=== PATIENT | female | born 1955 | race Caucasian/White ===

== ENCOUNTER → 2019-01-10 10:51 | Outpatient (CLI) | payer OTHER, SELFPAY ==
--- NOTE | 2019-01-10 | DI.MG.S_ITS ---
BILATERAL DIGITAL SCREENING MAMMOGRAM 3D/2D WITH CAD: 01/10/2019 CLINICAL: Routine screening. Family history of breast cancer. Comparison is made to exams dated: 12/13/2017 mammogram, 01/14/2015 mammogram, and 07/22/2013 mammogram - [facility]. The tissue of both breasts is extremely dense, which lowers the sensitivity of mammography. Current study was also evaluated with a Computer Aided Detection (CAD) system. There are benign diffuse calcifications in both breasts. No significant masses, calcifications, or other findings are seen in either breast. There has been no significant interval change. IMPRESSION: There is no mammographic evidence of malignancy. A 1 year screening mammogram is recommended. This exam was interpreted at Station ID: [id number]. NOTE: For mammograms, a report in lay terms will be sent to the patient. Approximately 15% of breast malignancies will not be visualized mammographically. In the management of a palpable breast mass, a negative mammogram must not discourage biopsy of a clinically suspicious lesion. Electronically Signed By: Ti hallman/basia:01/10/2019 11:55:44 letter sent: Normal Exam ACR BI-RADS Category 2: Benign Finding(s) 3342F
== END ==
PROVIDERS: Family Provider Physician Assistant; PCP Physician Assistant; Visit Provider Physician Assistant
DX: Z12.31 Encounter for screening mammogram for malignant neoplasm of breast (principal); Z80.3 Family history of malignant neoplasm of breast
CPT/HCPCS: 77063; 77067

== ENCOUNTER → 2019-07-09 13:03 | Outpatient (CLI) | payer OTHER, SELFPAY | PROVIDERS: Family Provider Physician Assistant; PCP Physician Assistant; Visit Provider Physician Assistant | DX: M85.88 Other specified disorders of bone density and structure, other site (principal); Z78.0 Asymptomatic menopausal state; Z82.62 Family history of osteoporosis; Z87.891 Personal history of nicotine dependence | CPT/HCPCS: 77080 ==

== ENCOUNTER → 2020-08-18 15:20 | Outpatient (ROUT) | payer OTHER, SELFPAY | PROVIDERS: Family Provider Physician Assistant; PCP Physician Assistant; Visit Provider Student in an Organized Health Care Education/Training Program | DX: R39.9 Unspecified symptoms and signs involving the genitourinary system (principal) | CPT/HCPCS: 87077; 87086; 87186 ==

== ENCOUNTER → 2021-01-19 17:19 | Outpatient (CLI) | payer OTHER, SELFPAY ==
--- NOTE | 2021-01-19 | DI.MG.S_ITS ---
BILATERAL DIGITAL SCREENING MAMMOGRAM 3D/2D WITH CAD: 01/19/2021 CLINICAL: Routine screening. Family history of breast cancer. Comparison is made to exams dated: 01/10/2019 mammogram, 12/13/2017 mammogram, and 01/14/2015 mammogram - [facility]. The tissue of both breasts is extremely dense, which lowers the sensitivity of mammography. Current study was also evaluated with a Computer Aided Detection (CAD) system. There is a new focal asymmetry in the right breast at 2 o'clock posterior depth. No other significant masses, calcifications, or other findings are seen in either breast. IMPRESSION: INCOMPLETE: NEEDS ADDITIONAL IMAGING EVALUATION The new focal asymmetry in the right breast is indeterminate. Additional views with possible ultrasound are recommended. This exam was interpreted at Station ID: [id number]. NOTE: For mammograms, a report in lay terms will be sent to the patient. Approximately 15% of breast malignancies will not be visualized mammographically. In the management of a palpable breast mass, a negative mammogram must not discourage biopsy of a clinically suspicious lesion. Electronically Signed By: Marlon tai/basia:01/20/2021 14:31:41 letter sent: Additional Imaging Needed ACR BI-RADS Category 0: Incomplete 3340F
== END ==
PROVIDERS: Family Provider Physician Assistant; PCP Physician Assistant; Referring Provider Physician Assistant; Visit Provider Physician Assistant
DX: Z12.31 Encounter for screening mammogram for malignant neoplasm of breast (principal); Z80.3 Family history of malignant neoplasm of breast
CPT/HCPCS: 77063; 77067

== ENCOUNTER → 2021-01-27 08:50 | Outpatient (CLI) | payer OTHER, SELFPAY ==
--- NOTE | 2021-01-27 | DI.US.S_ITS ---
LIMITED ULTRASOUND OF RIGHT BREAST AND AXILLA: 01/27/2021 CLINICAL: Patient returns today to evaluate a focal asymmetry in the right breast. Comparison is made to exams dated: 01/27/2021 mammogram, 01/19/2021 mammogram, 01/10/2019 mammogram, 12/13/2017 mammogram, 01/14/2015 mammogram, and 07/22/2013 mammogram - [facility]. Color flow and real-time ultrasound of the right breast 2-3 o'clock, 11 o'clock, retroareolar, and axilla regions were performed. Aquino scale images of the real-time examination were reviewed. No ultrasound correlate for the focal asymmetry in the right breast 2 o'clock posterior depth. No significant abnormalities were seen sonographically in the right axilla. IMPRESSION: SUSPICIOUS OF MALIGNANCY No ultrasound correlate for the new focal asymmetry in the right breast is identified. A right breast stereotactic biopsy is recommended. Exam findings were discussed with the patient by Dr. Marcos Harmon over the phone. This exam was interpreted at Station ID: [id number]. Electronically Signed By: Marcos Harmon M.D. slc/:01/27/2021 10:44:14 letter sent: Biopsy Required Ultrasound BI-RADS: 4a Low suspicion for malignancy
--- NOTE | 2021-01-27 | DI.MG.S_ITS ---
UNILATERAL RIGHT DIGITAL DIAGNOSTIC MAMMOGRAM 3D/2D WITH ADDITIONAL VIEWS: 01/27/2021 CLINICAL: Additional evaluation requested from prior study. Comparison is made to exams dated: 01/19/2021 mammogram, 01/10/2019 mammogram, and 12/13/2017 mammogram - [facility]. The tissue of right breast is extremely dense, which lowers the sensitivity of mammography. There is a new 0.5 cm irregular equal density focal asymmetry with a spiculated margin in the right breast at 2 o'clock posterior depth. No other significant masses or calcifications are seen in the breast. IMPRESSION: INCOMPLETE: NEEDS ADDITIONAL IMAGING EVALUATION The new 0.5 cm irregular equal density focal asymmetry in the right breast is indeterminate. A targeted ultrasound is recommended and will immediately follow. This exam was interpreted at Station ID: [id number]. NOTE: For mammograms, a report in lay terms will be sent to the patient. Approximately 15% of breast malignancies will not be visualized mammographically. In the management of a palpable breast mass, a negative mammogram must not discourage biopsy of a clinically suspicious lesion. Electronically Signed By: Marcos Harmon M.D. slc/:01/27/2021 10:39:59 ACR BI-RADS Category 0: Incomplete 3340F
== END ==
PROVIDERS: Family Provider Physician Assistant; PCP Physician Assistant; Referring Provider Physician Assistant; Visit Provider Physician Assistant
DX: R92.8 Other abnormal and inconclusive findings on diagnostic imaging of breast (principal); N64.89 Other specified disorders of breast
CPT/HCPCS: 76642; 77065; G0279

== ENCOUNTER → 2021-05-02 10:29 | Outpatient (CLI) | payer OTHER, SELFPAY ==
[2021-05-02 11:29] LABS: Add Manual Diff / Slide Review NO; Basophils Absolute Auto 200 /uL (0-100); Basophils Percent Auto 1.9 % (0-2); Eosinophils Absolute Auto 500 /uL (0-450); Hematocrit 40.3 % (36-46); Hemoglobin 13.7 g/dL (12.0-16.0); Lymphocytes Absolute Auto 2600 /uL (1100-4500); Lymphocytes Percent Auto 31.1 % (25-40); Mean Corpuscular HGB Conc 33.9 % (30-36); Mean Corpuscular Hemoglobin 31.3 PG (26-34); Mean Corpuscular Volume 92.1 fL (80-100); Monocytes Absolute Auto 500 /uL (0-900); Monocytes Percent Auto 5.9 % (3-14); Neutrophils Absolute Auto 4600 /uL (1500-7000); Neutrophils Percent Auto 55.1 % (50-75); Platelet Count 250 X10^3/uL (150-400); Red Blood Cell Count 4.38 X10^6/uL (4.0-5.2); Red Cell Distribution Width 13.2 % (11.6-14.8); White Blood Cell Count 8.3 X10^3/uL (4.5-11.0)
[2021-05-02 11:44] LABS: Alanine Aminotransferase 48 IU/L (<35); Albumin 4.4 g/dL (3.5-5.0); Albumin Globulin Ratio 1.8 (1.0-2.8); Alkaline Phosphatase 63 U/L (38-126); Aspartate Aminotransferase 42 IU/L (14-36); BUN Creatinine Ratio 19.3 (6-22); Bilirubin Total 0.9 mg/dL (0.2-1.3); Blood Urea Nitrogen 11 mg/dL (7-17); Calcium 9.9 mg/dL (8.4-10.2); Carbon Dioxide 30 mmol/L (22-32); Chloride 100 mmol/L (98-107); Cholesterol 242 mg/dL (140-199); Estimated Glomerular Filt Rate > 60.0 mL/min (>60); Globulin 2.4 g/dL (1.7-4.1); Glucose 99 mg/dL (80-110); HDL Cholesterol 97 mg/dL (40-60); HEMOLYSIS < 15 (0-50); LDL Cholesterol Calculated 96 mg/dL (<100); Potassium 4.1 mmol/L (3.4-5.1); Sodium 137 mmol/L (137-145); Total Protein 6.8 g/dL (6.3-8.2); Triglycerides 243 mg/dL (35-150)
== END ==
PROVIDERS: Family Provider Physician Assistant; PCP Physician Assistant; Referring Provider Physician Assistant; Visit Provider Physician Assistant
DX: E78.5 Hyperlipidemia, unspecified (principal)
CPT/HCPCS: 36415; 80053; 80061; 85025

== ENCOUNTER → 2021-05-31 13:29 | Outpatient (CLI) | payer OTHER, SELFPAY ==
--- NOTE | 2021-05-31 | DI.MG.S_ITS ---
UNILATERAL RIGHT DIGITAL DIAGNOSTIC MAMMOGRAM 3D/2D SHORT-TERM FOLLOW-UP: 05/31/2021 CLINICAL: Short term follow up from [facility]. Comparison is made to exams dated: 02/08/2021 stereotactic biopsy - [facility], 01/27/2021 mammogram, 01/19/2021 mammogram, 01/10/2019 mammogram, and 01/27/2021 ultrasound - [facility]. The tissue of right breast is extremely dense, which lowers the sensitivity of mammography. There is an irregular equal density focal asymmetry in the right breast at 1 o'clock posterior depth. This is increased in size. There is a biopsy clip associated with the focal asymmetry. No other significant masses or calcifications are seen in the breast. IMPRESSION: INCOMPLETE: NEEDS ADDITIONAL IMAGING EVALUATION The irregular equal density focal asymmetry in the right breast is indeterminate. An ultrasound is recommended. This exam was interpreted at Station ID: [id number]. NOTE: For mammograms, a report in lay terms will be sent to the patient. Approximately 15% of breast malignancies will not be visualized mammographically. In the management of a palpable breast mass, a negative mammogram must not discourage biopsy of a clinically suspicious lesion. Electronically Signed By: Marlon tai/basia:05/31/2021 15:57:36 ACR BI-RADS Category 0: Incomplete 3340F
--- NOTE | 2021-05-31 | DI.US.S_ITS ---
LIMITED ULTRASOUND OF RIGHT BREAST AND AXILLA: 05/31/2021 CLINICAL: Patient returns today to evaluate a focal asymmetry in the right breast. Comparison is made to exams dated: 02/08/2021 stereotactic biopsy - [facility], 01/27/2021 ultrasound, 01/27/2021 mammogram, 01/19/2021 mammogram, 05/31/2021 mammogram, and 01/10/2019 mammogram - [facility]. Color flow ultrasound of the right breast axilla was performed. Aquino scale images of the real-time examination were reviewed. There is a 1.5 cm x 0.8 cm x 0.6 cm irregular mass in the right breast at 1 o'clock middle depth 9 cm from the nipple. This irregular mass is hypoechoic with posterior acoustic shadowing. The abnormality extends to the skin surface on cine images. This correlates with mammography findings. There is an associated biopsy clip. No significant abnormalities were seen sonographically in the right axilla. IMPRESSION: PROBABLY BENIGN The 1.5 cm x 0.8 cm x 0.6 cm irregular mass in the right breast is most likely a post-biopsy scar is probably benign. A follow-up right mammogram and an ultrasound in 6 months is recommended to demonstrate stability. This exam was interpreted at Station ID: [id number]. Electronically Signed By: Marlon Benson M.D. ar/:05/31/2021 16:01:51 letter sent: Followup Recommended Ultrasound BI-RADS: 3 Probably benign
== END ==
PROVIDERS: Family Provider Physician Assistant; PCP Physician Assistant; Referring Provider Physician Assistant; Visit Provider Physician Assistant
DX: N63.12 Unspecified lump in the right breast, upper inner quadrant (principal)
CPT/HCPCS: 76642; 77065; G0279

== ENCOUNTER → 2021-12-08 12:52 | Outpatient (CLI) | payer OTHER, SELFPAY ==
--- NOTE | 2021-12-08 | DI.MG.S_ITS ---
BILATERAL DIGITAL DIAGNOSTIC MAMMOGRAM 3D/2D SHORT-TERM FOLLOW-UP: 12/08/2021 CLINICAL: Short term follow up of the right breast, due for bilateral imaging. Comparison is made to exams dated: 05/31/2021 mammogram, 01/27/2021 mammogram, and 01/19/2021 mammogram - [facility]. The tissue of both breasts is extremely dense, which lowers the sensitivity of mammography. There are stable benign diffuse punctate calcifications in both breasts. There is a small asymmetry and architectural distortion in the right breast at 12 o'clock posterior depth. This is less prominent and decreased in size. There is a biopsy clip associated with the architectural distortion. No other significant masses, calcifications, or other findings are seen in either breast. Mammograms are otherwise stable. IMPRESSION: BENIGN The architectural distortion in the right breast has decreased in size, has the appearance of a scar, and there has been no redevelopment of the focal asymmetry initially seen and biopsied. This area is benign. Mammograms are otherwise stable. Return to annual mammogram screening schedule is recommended. Findings and recommendations were conveyed to the patient at time of exam. This exam was interpreted at Station ID: [id number]. NOTE: For mammograms, a report in lay terms will be sent to the patient. Approximately 15% of breast malignancies will not be visualized mammographically. In the management of a palpable breast mass, a negative mammogram must not discourage biopsy of a clinically suspicious lesion. Electronically Signed By: Coby couch/:12/08/2021 13:47:43 letter sent: Normal Exam ACR BI-RADS Category 2: Benign Finding(s) 3342F
== END ==
PROVIDERS: Family Provider Physician Assistant; PCP Physician Assistant; Referring Provider Physician Assistant; Visit Provider Physician Assistant
DX: R92.8 Other abnormal and inconclusive findings on diagnostic imaging of breast (principal)
CPT/HCPCS: 77066; G0279

== ENCOUNTER → 2022-12-11 11:26 | Outpatient (CLI) | payer OTHER, SELFPAY ==
--- NOTE | 2022-12-11 | DI.MG.S_ITS ---
BILATERAL DIGITAL SCREENING MAMMOGRAM 3D/2D WITH CAD: 12/11/2022 Comparison is made to exams dated: 12/08/2021 mammogram, 05/31/2021 mammogram, 01/27/2021 mammogram, 01/19/2021 mammogram, and 01/10/2019 mammogram - [facility]. Both breasts are extremely dense, which lowers the sensitivity of mammography (category d />75% glandular tissue). Current study was also evaluated with a Computer Aided Detection (CAD) system. There are stable benign diffuse calcifications in both breasts. No significant masses, calcifications, or other findings are seen in either breast. There has been no significant interval change. IMPRESSION: BENIGN There is no mammographic evidence of malignancy. A 1 year screening mammogram is recommended. This exam was interpreted at Station ID: [id number]. NOTE: For mammograms, a report in lay terms will be sent to the patient. Approximately 15% of breast malignancies will not be visualized mammographically. In the management of a palpable breast mass, a negative mammogram must not discourage biopsy of a clinically suspicious lesion. Electronically Signed By: iT hallman/basia:12/11/2022 16:10:13 letter sent: Normal Exam ACR BI-RADS Category 2: Benign Finding(s) 3342F
== END ==
PROVIDERS: Family Provider Physician Assistant; PCP Physician Assistant; Referring Provider Physician Assistant; Visit Provider Physician Assistant
DX: Z12.31 Encounter for screening mammogram for malignant neoplasm of breast (principal)
CPT/HCPCS: 77063; 77067

== ENCOUNTER → 2024-08-22 15:45 | Outpatient (CLI) | payer OTHER, SELFPAY ==
--- NOTE | 2024-08-22 15:46 | DI.MG.S_ITS ---
BILATERAL DIGITAL SCREENING MAMMOGRAM 3D/2D WITH CAD: 08/22/2024 CLINICAL: Routine screening. Family history of breast cancer. Comparison is made to exams dated: 12/11/2022 mammogram, 12/08/2021 mammogram, 01/19/2021 mammogram, 05/31/2021 mammogram, 01/27/2021 mammogram, and 01/10/2019 mammogram - [facility]. The breasts are extremely dense, which lowers the sensitivity of mammography (category d />75% glandular tissue). Current study was also evaluated with a Computer Aided Detection (CAD) system. There are benign diffuse calcifications in both breasts. There also is a biopsy clip in the right breast. No significant masses, calcifications, or other findings are seen in either breast. There has been no significant interval change. IMPRESSION: BENIGN There is no mammographic evidence of malignancy. A 1 year screening mammogram is recommended. Based on the Tyrer Cuzick model (a risk assessment model) the patient's lifetime risk is 15.8% and her 10 year risk is 11.1%. According to the ACR, ACS, and NCCN guidelines, an annual breast MRI exam along with mammogram is recommended if the patient's lifetime risk is 20% or greater. This exam was interpreted at Station ID: [id number]. NOTE: For mammograms, a report in lay terms will be sent to the patient. Approximately 15% of breast malignancies will not be visualized mammographically. In the management of a palpable breast mass, a negative mammogram must not discourage biopsy of a clinically suspicious lesion. Electronically Signed By: Arline Choe M.D., Ph.D. gabbi/basia:08/22/2024 23:13:22 letter sent: Normal Exam ACR BI-RADS Category 2: Benign
== END ==
PROVIDERS: Family Provider Physician Assistant; PCP Physician Assistant; Referring Provider Physician Assistant; Visit Provider Physician Assistant
DX: Z12.31 Encounter for screening mammogram for malignant neoplasm of breast (principal); R92.1 Mammographic calcification found on diagnostic imaging of breast; R92.30 Dense breasts, unspecified; Z80.3 Family history of malignant neoplasm of breast
CPT/HCPCS: 77063; 77067

== ENCOUNTER → 2024-11-12 10:44 | Outpatient (CLI) | payer OTHER, SELFPAY ==
--- NOTE | 2024-11-12 10:46 | DI.US.S_ITS ---
PROCEDURE: US SOFT TISSUE HEAD AND NECK INDICATIONS: BILATERAL NECK LUMPS L>R TECHNIQUE: Real-time scanning was performed of the neck region of interest, with image documentation. COMPARISON: None. FINDINGS: At the area of concern, there are several small normal appearing lymph nodes. Largest is in the left submandibular region measuring 9.3 mm. IMPRESSION: Normal soft tissue ultrasound. Palpable abnormality corresponds with normal appearing lymph nodes Approved by: Lorenzo Randle M.D. on 11/12/2024 at 18:02
== END ==
PROVIDERS: Family Provider Physician Assistant; PCP Physician Assistant; Referring Provider Physician Assistant; Visit Provider Physician Assistant
DX: R22.1 Localized swelling, mass and lump, neck (principal); R61 Generalized hyperhidrosis
CPT/HCPCS: 76536

== ENCOUNTER → 2024-12-25 14:54 | Outpatient (CLI) | payer OTHER, SELFPAY ==
--- NOTE | 2024-12-25 14:57 | DI.RAD.S_ITS ---
PROCEDURE: XR CHEST 2V INDICATIONS: NIGHT SWEATS TECHNIQUE: 2 views of the chest were acquired. COMPARISON: None. FINDINGS: Heart, mediastinum and pulmonary vascular: Heart is normal in size and configuration. Mediastinum is unremarkable. Pulmonary vascular is normal. Lungs: Clear Pleural spaces: Normal-no effusions or pneumothorax. Bones and soft tissues: N mild degenerative disc disease seen throughout the thoracic spine. IMPRESSION: No cardiopulmonary disease Dictated by: Neville Nair M.D. on 12/26/2024 at 12:08 Approved by: Neville Nair M.D. on 12/26/2024 at 12:09
== END ==
PROVIDERS: Family Provider Physician Assistant; PCP Physician Assistant; Referring Provider Family Medicine; Visit Provider Family Medicine
DX: M51.34 Other intervertebral disc degeneration, thoracic region (principal); R61 Generalized hyperhidrosis
CPT/HCPCS: 71046

== ENCOUNTER 2025-01-05 08:02 | Day surgery (SDC) | payer OTHER, SELFPAY ==
--- NOTE | 2025-01-05 | PATH_ITS ---
[facility] Accession Number: [id number] No. of containers..03 Tissue . 01 Material submitted: . PART A: gastrointestinal site - GASTRIC BIOPSY PART B: esophagus, E-G Junction - GE JUNCTION NODULE PART C: esophagus - DISTAL ESOPHAGUS . 01 Clinical history: . A: FOR H.PYLORI C: R/O GODOY'S . 01 Diagnosis: Part A: GASTRIC BIOPSY: Gastric mucosa with mild chronic inflammation. No Helicobacter organisms identified. No intestinal metaplasia, dysplasia, or malignancy identified. . Part B: GE JUNCTION NODULE: Squamocolumnar junctional mucosa with mild chronic inflammation and mild reactive foveolar hyperplasia. No goblet cell metaplasia, dysplasia, or malignancy identified. See comment. . Specimen Comments: The presence of mild reactive foveolar changes may correlate with the clinical appearance of a nodule. No other histologic correlate is seen, and clinical correlation is recommended. . Additional step sections were examined. . Part C: DISTAL ESOPHAGUS: Squamous mucosa with mild reactive changes suggestive of reflux. Eosinophils are not increased. [facility] 01/07/2025 1522 Local . 01 Electronically signed: . Kostas Fam MD, Pathologist NPI- [id number] . 01 Gross description: . Part A: GASTRIC BIOPSY: Received in formalin are 2 fragment(s) of newton, soft tissue measuring 0.2 x 0.1 x 0.1 cm to 0.5 x 0.1 x 0.1 cm submitted entirely in 1 cassette(s) . Part B: GE JUNCTION NODULE: Received in formalin are 2 fragment(s) of newton, soft tissue measuring 0.2 x 0.2 x 0.2 cm to 0.3 x 0.3 x 0.2 cm submitted entirely in 1 cassette(s) . Part C: DISTAL ESOPHAGUS: Received in formalin are 2 fragment(s) of newton, soft tissue measuring 0.1 x 0.1 x 0.1 cm to 0.2 x 0.1 x 0.1 cm submitted entirely in 1 cassette(s) /PATEL 01/07/2025 1522 Local . 01 Microscopic: . Part A: GASTRIC BIOPSY: An immunohistochemical stain was performed to evaluate for Helicobacter organisms and is negative. The control stains appropriately. * This test was developed and the performance characteristics were validated by [employer]. It has not been cleared or approved by the Food and Drug Administration. . Part B: GE JUNCTION NODULE: An ABPAS stain was performed to evaluate for goblet cell metaplasia and is negative. The control stains appropriately. . Part C: DISTAL ESOPHAGUS: An ABPAS stain was performed to evaluate for fungal organisms and is negative. The control stains appropriately. . 01 Pathologist provided ICD-10: K20.90, K29.50 . 01 CPT . 908995, 708847, 281811, 520774, [id number], [id number] Specimen Comment: A courtesy copy of this report has been sent to [phone] Performed at: [address] [address], [place], [place] [id number] MD Kostas Fam MD Phone: [phone]
[2025-01-05 08:17] VITALS: BP 118/77; PULSE 96; RESP 16; TEMP 36.4; O2SAT 97
[2025-01-05] MEDS: LACTATED RINGERS 1,000 ML 42 ML IV (08:24)
--- NOTE | 2025-01-05 08:33 | PM.PREOP ---
Pre-operative Note COVID-19 COVID-19 status: Not tested Interval Note History & Physical reviewed/Exam performed by Physician: Yes Changes to H&P: No ASA Class (for procedural sedation): II
--- NOTE | 2025-01-05 08:34 | PM.OP.EGD ---
Operative Date/Time/Diagnoses Date of procedure: 01/05/25 Pre-op diagnosis: See indication and findings Procedure & Clinicians Study performed: EGD Same procedure as scheduled: Yes Indications: GE reflux Surgeon: Song Crump Procedure Notes Procedure in detail: After informed consent was obtained the patient was placed in left lateral decubitus position. The video upper scope was placed into the oropharynx and with the patient's help swallowed into the esophagus. The esophagus stomach and duodenal were carefully examined. On withdrawal, retroflexed view the GE junction was performed. The scope was removed. The patient tolerated procedure well. Blood loss none Complications none Sedation mac Findings 1. Normal proximal esophagus 2. Scattered islands of pink tissue in the last cm before the GE junction. There were no circumferential areas of possible Tyler's. Biopsies were taken to rule out Barretts in the area of 34-35 cm 3. No evidence of peptic change at the GE junction at 35 cm 4. Nodule present at GE junction approximately 1 cm in size appearing benign. Most likely a sentinel nodule 4. Normal stomach biopsies taken in the antrum to rule out Helicobacter 5. Normal duodenal bulb and sweep We will be in touch regarding biopsies and interval of follow-up needed if necessary.
[2025-01-05 09:40] VITALS: BP 123/74; PULSE 89; RESP 22; TEMP 36.3; O2SAT 95
[2025-01-05 09:45] VITALS: BP 119/49; PULSE 86; RESP 14; O2SAT 95
[2025-01-05 09:55] VITALS: BP 137/74; PULSE 83; RESP 15; TEMP 36.3; O2SAT 98
== END 2025-01-05 10:13 | disposition home or self-care (01) ==
PROVIDERS: Family Provider Physician Assistant; PCP Physician Assistant; Referring Provider Internal Medicine Gastroenterology; Visit Provider Internal Medicine Gastroenterology
PROC: 0DJ08ZZ Inspection of Upper Intestinal Tract, Via Natural or Artificial Opening Endoscopic (ICD-10-PCS; CPT 43239; principal; 2025-01-05 09:00)
DX: K21.9 Gastro-esophageal reflux disease without esophagitis (principal); K29.50 Unspecified chronic gastritis without bleeding
CPT/HCPCS: 43239; J2704; J3010

== ENCOUNTER → 2025-01-06 12:27 | Outpatient (CLI) | payer OTHER, SELFPAY ==
--- NOTE | 2025-01-06 12:29 | DI.CT.S_ITS ---
PROCEDURE: CT SOFT TISSUE NECK W CON INDICATIONS: Night Sweats TECHNIQUE: After the administration of intravenous contrast, 3.0 mm axial sections acquired from the sella to the aortic arch. Additional oblique axial 3.0 mm sections acquired through the pharynx. 3 mm thick coronal and sagittal reformats were generated. For radiation dose reduction, the following was used: automated exposure control. COMPARISON: None. FINDINGS: Image quality: Excellent. Lymph nodes: No enlarged lymph nodes seen throughout the neck. Vessels: Visualized vasculature appears patent. Neck spaces: The oropharynx, nasopharynx, and pharynx demonstrate no mucosal lesions. The vocal cords, false vocal cords, pyriform sinuses, epiglottis, vallecula, and tongue base all appear normal. Extramucosal spaces appear unremarkable. Glands: The parotid and submandibular glands appear normal. Thyroid gland demonstrates no significant abnormality. Miscellaneous: Visualized brain and orbits appear normal. Lung apices appear clear, please refer to same day CT of the chest. Superficial soft tissues appear normal. Bones: No suspicious bony lesions. Visualized sinuses and mastoids appear unremarkable. Degenerative changes of the cervical spine, most pronounced at C5-C6. IMPRESSION: No enlarged cervical lymph nodes or masses are identified. Dictated by: Shaggy Bronson M.D. on 01/06/2025 at 15:16 Approved by: Shaggy Bronson M.D. on 01/06/2025 at 15:22
--- NOTE | 2025-01-06 12:29 | DI.CT.S_ITS ---
PROCEDURE: CT CHEST ABD PEL W CON INDICATIONS: Night Sweats TECHNIQUE: After the administration of intravenous contrast, 5 mm thick sections acquired from the lung apices to the symphysis. 5 mm coronal and sagittal reformats were performed, with additional 7 mm MIP reformats through the lungs. For radiation dose reduction, the following was used: automated exposure control, adjustment of mA and/or kV according to patient size. COMPARISON: None. FINDINGS: Image quality: Diagnostic Lungs and pleura: No airspace consolidation. No pleural effusions. No cavitary lesion. No suspicious focal pulmonary nodule. Subtle centrilobular nodules are seen in the midportion of the left lower lobe. Mediastinum, heart, and esophagus: Mild distal esophageal wall thickening and small hiatal hernia. Heart size is at the upper limit of normal. No pathologic lymph nodes by size criteria Chest wall and thyroid: Unremarkable Liver: 1.5 cm lesion at the liver dome is probably a cavernous hemangioma. Gallbladder and biliary system: Unremarkable, nondilated Pancreas: No ductal dilation Spleen: Nonenlarged measuring about 10 cm Adrenals: No discrete nodules. Kidneys: No solid mass. No hydronephrosis. Vessels and lymph nodes: The main portal vein is patent. No abdominal aortic aneurysm no pathologic lymphadenopathy by size criteria. Bowel and peritoneum: No small bowel obstruction. No drainable abscess or ascites. Body wall: Small fat containing umbilical hernia. Pelvis: Bladder is unremarkable. There are uterine calcifications. These are probably senescent/calcified fibroids. Ultrasound could better evaluate the reproductive organs if clinically necessary Bones: No aggressive appearing osseous abnormality. There are degenerative changes. IMPRESSION: No definite lymphadenopathy by size criteria or splenomegaly. Nodularity in the left lower lobe of the lung, favored to be infectious/inflammatory. Surveillance CT chest imaging could be obtained to ensure resolution at clinical discretion. Mild distal esophageal wall thickening , small hiatal hernia , possibly esophagitis. Endoscopy could further evaluate if needed. 1.5 cm lesion at the liver dome is probably a benign cavernous hemangioma. Liver MRI could be ordered to confirm if there is high concern for malignancy. Other findings above. Dictated by: Mao Young M.D. on 01/06/2025 at 16:18 Approved by: Mao Young M.D. on 01/06/2025 at 16:25
== END ==
PROVIDERS: Family Provider Physician Assistant; PCP Physician Assistant; Referring Provider Family Medicine; Visit Provider Family Medicine
DX: K76.9 Liver disease, unspecified; R61 Generalized hyperhidrosis; R91.8 Other nonspecific abnormal finding of lung field; K42.9 Umbilical hernia without obstruction or gangrene; K44.9 Diaphragmatic hernia without obstruction or gangrene
CPT/HCPCS: 70491; 71260; 74177; Q9967

== ENCOUNTER → 2025-03-10 12:10 | Outpatient (CLI) | payer OTHER, SELFPAY ==
--- NOTE | 2025-03-10 12:12 | DI.RAD.S_ITS ---
PROCEDURE: XR DEXA AXIAL SKELETON INDICATIONS: Osteopenia COMPARISON: [facility], CR, XR DEXA AXIAL SKELETON, 07/09/2019, 13:35. FINDINGS: Lumbar Spine: Bone mineral density 0.741 g/cm2, T score -2.8. There is interval 14.8% decrease in total lumbar spine bone mineral density. Left Femoral Neck: Bone mineral density 0.645 g/cm2, T score -1.8. There is interval 0.6% decrease in left femoral neck bone mineral density. Left Hip: Bone mineral density 0.785 g/cm2, T score -1.3. There is interval 3.1% decrease in left total hip bone mineral density. Fracture Risk Calculation (when applicable): 10-year fracture risk of a major osteoporotic fracture 18 percent and of a hip fracture 6.0 percent. (T score greater or equal to -1.0 to: NORMAL) (T score from -1.1 to -2.4: OSTEOPENIA) (T score less than or equal to -2.5: OSTEOPOROSIS) IMPRESSION: Osteoporosis. Follow-up guidelines as follows: Osteoporosis: Consider a repeat DEXA and Vertebral Fracture Assessment (VFA) exam in 2 years or sooner if medically necessary, to reassess this patient's status. Osteopenia: Consider a repeat DEXA in 2-3 years to reassess this patient's status, or if there is a new clinical indication. Normal: Consider a repeat DEXA in 5 years or sooner, or if there is a new clinical indication. All treatment decisions require clinical judgment and consideration of individual patient factors, including patient preferences, comorbidities, previous drug use, risk factors not captured in the FRAX model (e.g., frailty, falls, vitamin D deficiency, increased bone turnover, interval significant decline in bone density ) and possible under- or over-estimation of fracture risk by FRAX. In addition, the NOF Guide recommends that FDA-approved medical therapies be considered in postmenopausal women and men age >= 50 years with a: * Hip or vertebral (clinical or morphometric) fracture * T-score of <=-2.5 at the spine or hip * Ten-year fracture probability by FRAX of >= 3% for hip fracture or >=20% for major osteoporotic fracture. Dictated by: Gibran Silveira M.D. on 03/10/2025 at 16:38 Approved by: Gibran Silveira M.D. on 03/10/2025 at 16:39
--- NOTE | 2025-03-10 12:12 | DI.MRI.S_ITS ---
PROCEDURE: MR ABDOMEN LIVER PROTOCOL INDICATIONS: Liver mass TECHNIQUE: Coronal HASTE, axial 2D FLASH in- and [id number]; axial breath-hold T2 FSE. Dynamic axial VIBE during the administration of contrast; post-contrast coronal VIBE or 2D FLASH with fat saturation from the hepatic dome to the iliac crests. Optional diffusion weighted imaging and ADC may be performed. COMPARISON: None. FINDINGS: Image quality: Diagnostic. Lung bases: Small hiatal hernia. Liver: 1.5 centimeters segment 8 liver lesion which demonstrates peripheral, discontinuous arterial enhancement and delayed fill-in consistent with a benign hemangioma. Gallbladder: No gallstones or wall thickening. Biliary ducts: No biliary dilation. Pancreas: 5 millimeter T2 hyperintense cystic lesion in the pancreatic body (series 24, image 19). Connection to the pancreatic duct is seen on series 3, image 11. No ductal dilation. Spleen: Size is within normal limits. Adrenal Glands: No adrenal nodules. Kidneys and Ureters: No hydronephrosis. No solid mass. No complex renal cystic lesion which requires follow up. Stomach and Bowel: Normal colonic caliber, without significant wall thickening. Peritoneum: No abnormal intraperitoneal fluid. No free air. Ventral Wall: No hernia. Abdominal Nodes: No retroperitoneal or mesenteric adenopathy by size criteria. Vessels: Aorta and inferior vena cava are normal in size. Bones: No aggressive osseous abnormality. IMPRESSION: Benign hemangioma at the liver dome. No further follow-up is required. 5 millimeter T2 hyperintense cystic lesion within the pancreatic body, without suspicious features. There is connection to the pancreatic duct. Findings probably represent a side branch IPMN. Recommend follow-up with MRI/MRCP in 2 years, per consensus guidelines. Dictated by: Tomasz Rodríguez M.D. on 03/11/2025 at 10:05 Approved by: Tomasz Rodríguez M.D. on 03/11/2025 at 10:08
[2025-03-10 12:56] LABS: Estimated Glomerular Filt Rate > 60 mL/min (>60)
--- NOTE | 2025-03-10 13:31 | DI.CT.S_ITS ---
PROCEDURE: CT CHEST W CON INDICATIONS: Lung abnormality, follow-up of previously reported nodules TECHNIQUE: After the administration of intravenous contrast, 5 mm thick sections acquired from the pulmonary apices to the posterior costophrenic angles. 1 mm axial lung, 5 mm thick coronal and sagittal reformats and 7 mm axial MIP were acquired. For radiation dose reduction, the following was used: automated exposure control, adjustment of mA and/or kV according to patient size. COMPARISON: Prior CT chest abdomen pelvis 01/06/2025 FINDINGS: Image quality: Diagnostic. New or increased mild pericardial effusion or pericardial thickening measures up to approximately 7 mm maximum depth anteriorly-inferiorly. The previously noted left lower lobe peripheral or subpleural nodules are no longer evident on this exam. No new nodules. New or increased mild nonspecific wall thickening of the distal esophagus into the stomach, some of which may be artifact from partial nondistention although esophagitis, gastritis or other process could be considered. Upper Abdomen: Approximately 1.5 cm low-attenuation lesion at the right lobe of the liver superiorly commonly hepatic hemangioma not fully characterize on this exam, unchanged from previous CT. No pneumothorax, no pleural effusion, no focal consolidation. In the upper abdomen 1.5 cm and 1 cm accessory spleen nodules are noted anterior to the spleen unchanged. Lower Neck: No enlarged lymph nodes. Thyroid: No thyroid nodules which require sonographic follow up, per consensus guidelines. Axillae: No enlarged lymph nodes. Chest Wall: Unremarkable. Bones: Mild degenerative changes of the thoracic spine without CT evidence of fracture or subluxation unchanged. Heart: Heart size is normal. Thoracic Vessels: The aorta and pulmonary arteries demonstrate normal size. Mediastinum and Donna: No enlarged lymph nodes. IMPRESSION: Previously reported left lower lobe nodules are no longer evident. New or increased mild pericardial effusion or pericardial thickening. New or increased wall thickening distal esophagus into the stomach. Low-attenuation lesion right lobe of the liver unchanged. Dictated by: Peter Hernandes M.D. on 03/11/2025 at 9:20 Approved by: Peter Hernandes M.D. on 03/11/2025 at 9:34
== END ==
PROVIDERS: Family Provider Physician Assistant; PCP Family Medicine; Referring Provider Family Medicine; Visit Provider Family Medicine
DX: J98.4 Other disorders of lung (principal); R16.0 Hepatomegaly, not elsewhere classified; M81.0 Age-related osteoporosis without current pathological fracture; M85.89 Other specified disorders of bone density and structure, multiple sites
CPT/HCPCS: 36415; 71260; 74183; 77080; 82565; A9579; Q9967

== ENCOUNTER → 2025-03-25 07:58 | Outpatient (CLI) | payer OTHER, SELFPAY ==
--- NOTE | 2025-03-25 08:37 | DI.ECHO.S_ITS ---
[place] [facility]---------+ [facility] : : [address] : : [place] : : [id number] : : Phone: [phone] Echocardiogram Report + + :Name: DU LEZAMA Study Date: 03/25/2025 Height: 63 in : :[facility] ReadingLocation: Weight: 136 lb : : Gender: Female BSA: 1.6 m2 : :: 1955 Age: 69 yrs BP: 114/72 mmHg: :Reason For Study: Pericardial Effusion : :Ordering Physician: PABLO, : :MAXWELL Vuong Performed By: Darling Rubi : :Referring: MAXWELL SHAH : + + Interpretation Summary 1. The left ventricular contractility is normal. Estimate ejection fraction is greater than 55% with no segmental wall motion abnormalities. No LVH. Normal diastolic function. 2. The right ventricular contractility is normal. 3. All cardiac chambers are of normal size. 4. Trace to mild mitral regurgitation. 5. No obvious intracardiac shunts. 6. No obvious intracardiac masses nor thrombi. 7. Prominent fat pad with a trace, nonhemodynamically significant pericardial effusion. 8. Low right-sided filling pressures. Conclusion: Normal biventricular function with no significant valvular abnormalities. Procedure: A two-dimensional transthoracic echocardiogram with color flow and Doppler was performed. The study quality was technically adequate. There is no prior echocardiogram noted for this patient. The heart rate ranged between 62-66 bpm during the study. Left Ventricle: The left ventricle is normal in size and wall thickness. The ejection fraction is estimated to be 55-60%. Diastolic parameters suggest probable normal left ventricular diastolic function and normal filling pressures. Right Ventricle: The right ventricle grossly appears normal in size with probable normal systolic function. Atria: The left atrial size is normal. Right atrial size is normal. The interatrial septum grossly appears intact with no obvious evidence for an atrial septal defect. Mitral Valve: The mitral valve leaflets appear borderline thickened, but open well. There is mild mitral regurgitation. Aortic Valve: The aortic valve is trileaflet. The aortic valve opens well. There is trace aortic regurgitation. Tricuspid Valve: The tricuspid valve leaflets are thin and pliable. There is a trace or physiologic amount of tricuspid regurgitation. Pulmonic Valve: The pulmonic valve is not well seen, but is grossly normal. There is no pulmonic valvular regurgitation. Great Vessels: The aortic root is normal size. The ascending aorta is normal in size. The aortic arch is normal in size. The IVC is of normal diameter and collapses greater than 50% with a sniff. This suggests a low right atrial pressure of 3 mm Hg. Pericardium/ Pleura There is a trivial pericardial effusion noted. There is no pleural effusion. MMode/2D Measurements & Calculations LVIDd: 4.2 cm LVOT diam: 1.8 cm LVIDs: 2.8 cm Ao root diam: 3.0 cm FS: 34.1 % asc Aorta Diam: 3.0 cm EPSS: 0.54 cm Ao Arch Diam (Prox Trans): 2.6 cm IVSd: 0.81 cm LVPWd: 0.74 cm LV [place]. diameter/BSA (cm/m^2): 2.5 LV sys. diameter/BSA (cm/m^2): 1.7 LA A2 area: 15.8 cm2 RA long axis: 4.4 cm LA A4 area: 13.2 cm2 RA area: 15.4 cm2 LA length (vol): 4.2 cm RA vol: 45.5 ml LA vol: 42.7 ml RA : 27.7 ml/m2 LA vol index: 26.0 ml/m2 IVC diam: 1.4 cm RVD1 (basal): 2.3 cm TAPSE: 1.4 cm Doppler Measurements & Calculations Ao V2 max: 109.4 cm/sec LVOT Max Basilio: 75.5 cm/sec Ao V2 mean: 72.7 cm/sec LV V1 max P.3 mmHg Ao max P.8 mmHg LV V1 VTI: 17.8 cm Ao mean P.5 mmHg MARIA ESTHER(I,D): 1.9 cm2 Ao V2 VTI: 23.8 cm MARIA ESTHER(V,D): 1.7 cm2 sev ratio: 0.75 MARIA ESTHER indexed to BSA (cm^2/m^2): 1.1 MV E max basilio: 43.8 cm/sec PA V2 max: 48.0 cm/sec MV A max basilio: 63.1 cm/sec PA V2 mean: 32.8 cm/sec MV E/A: 0.69 PA mean P.49 mmHg Med Peak E' Basilio: 5.7 cm/sec PA pr(Accel): -10.1 mmHg E/E' med: 7.6 Lat Peak E' Basilio: 5.6 cm/sec E/E' lat: 7.9 E/e' average: 7.7 MV dec time: 0.26 sec Mike Curry Basilio: 73.7 cm/sec SV(LVOT): 44.7 ml Reading Physician:JL
== END ==
PROVIDERS: Family Provider Physician Assistant; PCP Family Medicine; Referring Provider Family Medicine; Visit Provider Family Medicine
DX: I34.0 Nonrheumatic mitral (valve) insufficiency (principal); I31.39 Other pericardial effusion (noninflammatory)
CPT/HCPCS: 93306

== ENCOUNTER → 2025-07-08 12:59 | Outpatient (CLI) | payer OTHER, SELFPAY ==
[2025-07-08 15:49] LABS: Add Manual Diff / Slide Review NO; Hematocrit 40.9 % (36-46); Hemoglobin 14.3 g/dL (12.0-16.0); Lymphocytes Absolute Auto 2400 /uL (1100-4500); Mean Corpuscular HGB Conc 34.9 % (30-36); Mean Corpuscular Hemoglobin 31.8 PG (26-34); Mean Corpuscular Volume 91.0 fL (80-100); Platelet Count 259 X10^3/uL (150-400)
[2025-07-08 16:31] LABS: Alanine Aminotransferase 39 IU/L (<35); Albumin 4.7 g/dL (3.5-5.0); Albumin Globulin Ratio 1.9 (1.0-2.8); Alkaline Phosphatase 73 U/L (38-126); Blood Urea Nitrogen 14 mg/dL (7-17); Calcium 9.7 mg/dL (8.4-10.2); Carbon Dioxide 28 mmol/L (22-32); Chloride 103 mmol/L (98-107); Estimated Glomerular Filt Rate > 60 mL/min (>60); Globulin 2.5 g/dL (1.7-4.1); Glucose 94 mg/dL (70-99); HEMOLYSIS < 15 (0-50); Potassium 4.2 mmol/L (3.4-5.1); Sodium 137 mmol/L (137-145); Total Protein 7.2 g/dL (6.3-8.2)
[2025-07-08 16:48] LABS: Vitamin D 25 Hydroxy (D3) 64.7 ng/mL (30.0-100.0)
[2025-07-08 17:03] LABS: TSH w/ Reflex to FT4 1.32 uIU/mL (0.47-4.68)
--- NOTE | 2025-07-09 10:07 | DIET.OUTPTC ---
Dietary Outpatient Consult Consult Date:07/08/25 Assessment:? 70 y F referred to dietitian for IBS, osteoporosis, hyperlipidemia, GERD. Pt comes to learn more about nutrition with osteoporosis considering lactose intolerance and IBS. For past month, pt has been doing lower fodmap diet with the first 2 weeks strict low fodmaps and the following weeks with some testing of fodmap foods. During first 2 weeks pt did note significant decrease in bloating and diarrhea, but when testing out different fodmaps, return of some diarrhea and bloating. Biggest noted trigger is onion/garlic. Getting vit D level tested soon. GI symptoms: diarrhea and bloating after eating to within 24 hours of eating fodmap/lactose food Diet Recall: B-/2 muffin, coffee, oatmilk with cherrios L-salad or half sandwich or leftovers D-chk, veggies Snack-maybe popcorn Taking 1,000 mg calcium blend with mg (calcium carbonate with citrate) and 1,000 IU vit D. Taking the 1,000 mg calcium and vit D together on empty stomach before bed. Fluids:water Height 5 ft 3 in Weight 137 lb BMI 24.3 Activity:not discussed today Nutrition Diagnosis:? Food and nutrition related knowledge deficit r/t balancing multiple health concerns aeb wanting to learn and get more resources on managing osteoporosis and IBS Interventions:? Discussed and provided appropriate resources on the following: -High and low fodmap foods, 3 phases- low, reintroduction, liberation, handouts on reintroduction phase, resource of [facility] -Nutrition for osteoporosis- vitamins/minerals, lactose free calcium sources, amount to aim for, upper limit of calcium, 2 days of resistance exercises Goals: -Split the 1,000 mg calcium supplement into 2 and take morning and night with food d/t to having calcium carbonate in it -Take vit D with meal that has fat in it for best absorption -2 servings of oatmilk per day to get 500 mg calcium from food -Do 2 weeks of going back to low fodmaps and when symptoms have decreased/mostly resolved like they were initially, then can start with systematic reintroduction phase per handout provided Monitoring/Evaluations:? F/u in 1 month to eval calcium intake and IBS reintroduction phase Electronically Signed by: Margaret Lam Clinical Dietitian [address] [address]
== END ==
PROVIDERS: Family Provider Physician Assistant; PCP Family Medicine; Referring Provider Family Medicine
DX: K58.9 Irritable bowel syndrome, unspecified (principal); E78.5 Hyperlipidemia, unspecified; M81.0 Age-related osteoporosis without current pathological fracture; K21.9 Gastro-esophageal reflux disease without esophagitis
CPT/HCPCS: 36415; 80053; 82306; 84443; 85025; 97802

== ENCOUNTER → 2025-08-12 13:03 | Outpatient (CLI) | payer OTHER, SELFPAY ==
--- NOTE | 2025-08-12 15:29 | DIET.OUTPTC ---
Dietary Outpatient Consult Consult Date:08/12/25 Assessment:? 70 y F referred to dietitian for IBS, osteoporosis, hyperlipidemia, GERD. Pt attended osteoporosis class. Is working through reintroduction phase, has found much symptom relief in redoing low fodmaps and success in reintroducing foods again. Biggest intolerances seem to be from GOS and fructans. Denies weight loss on diet. Is navigating finding things to make at dinner time. Would like to review intakes to ensure adequate calcium sources. Is doing supplements below plus 1 c dairy free milk plus 1 cup calcium fortified OJ, getting around 1500 mg calcium daily. Is doing 1 cup+ of dark leafy greens in salad for vit K. Taking 1,000 mg calcium blend (calcium carbonate with citrate) and 1,000 IU vit D. Is now taking calcium in 500 mg amounts at 2 different meals and at 1 of the meals including the vitamin D supplement. Fluids:water Activity:resistance training Nutrition Diagnosis:? (Improved) Food and nutrition related knowledge deficit r/t balancing multiple health concerns aeb wanting to learn and get more resources on managing osteoporosis and IBS Interventions:? Discussed and provided appropriate resources on the following: -Addressed questions on specific foods and FODMAP content -Discussed resource for lower fodmap recipes -Reviewed calcium and vit K intake Goals: New: -Continue to work on reintroducing foods systematically per handout and re-trying as needed for the most liberated diet possible, pt feels confident in ability to do this and resources she has -Continue meeting 1200 mg ca and 800 IU vit D daily Met-Split the 1,000 mg calcium supplement into 2 and take morning and night with food d/t to having calcium carbonate in it Met-Take vit D with meal that has fat in it for best absorption Met -2 servings of oatmilk per day to get 500 mg calcium from food (is doing 1 glass oj w calcium for 350 mg ca meetin ca needs) Met-Do 2 weeks of going back to low fodmaps and when symptoms have decreased/mostly resolved like they were initially, then can start with systematic reintroduction phase per handout provided Monitoring/Evaluations:? F/u PRN Electronically Signed by: Margaret Lam Clinical Dietitian [address] [address]
== END ==
LOC: DIET 13:04
PROVIDERS: PCP Family Medicine; Referring Provider Family Medicine
DX: K58.9 Irritable bowel syndrome, unspecified (principal); M81.0 Age-related osteoporosis without current pathological fracture; E78.5 Hyperlipidemia, unspecified; K21.9 Gastro-esophageal reflux disease without esophagitis
CPT/HCPCS: 97803

== ENCOUNTER → 2025-08-28 14:53 | Outpatient (CLI) | payer OTHER, SELFPAY ==
--- NOTE | 2025-08-28 14:53 | DI.MG.S_ITS ---
MM screening mammo BI: 08/28/2025. BI-RADS: 0 CLINICAL: 70-year old female for bilateral screening mammogram. Tyrer-Cuzick lifetime risk of 11.1%. Current reported family history of breast cancer: mother. The patient had a prior right breast biopsy. PRIOR EXAMS 08/22/2024, 12/11/2022, 12/08/2021, 05/31/2021. MAMMOGRAPHY TECHNIQUE: 2D and 3D (tomosynthesis) digital mammographic views obtained, with additional images as needed for full coverage. Current study was also evaluated with a Computer Aided Detection (CAD) system. DENSITY D. The breasts are extremely dense, which lowers the sensitivity of mammography. MAMMOGRAPHY FINDINGS Right: Upper Inner Quadrant, Posterior depth: Focal asymmetry needing additional imaging evaluation. Left: No suspicious mass, asymmetry, microcalcification, or other abnormality seen. IMPRESSION: Right (Asymmetry): Upper Inner Quadrant, Posterior depth * Incomplete - focal asymmetry needing additional imaging evaluation. Left * No evidence of malignancy. RECOMMENDATIONS Right: Upper Inner Quadrant, Posterior depth * Further evaluation with diagnostic mammography and diagnostic ultrasound. Ultrasound to be performed only if needed. OVERALL ASSESSMENT CATEGORY BI-RADS-0: Incomplete - Need Additional Imaging Evaluation. ELECTRONICALLY SIGNED: Vira Huang M.D. on 08/31/2025 at 09:08:23 AM PT Interpreting Station ID: [id number]
== END ==
LOC: MAMMO 14:53
PROVIDERS: PCP Family Medicine; Referring Provider Family Medicine; Visit Provider Family Medicine
DX: Z12.31 Encounter for screening mammogram for malignant neoplasm of breast (principal); R92.333 Mammographic heterogeneous density, bilateral breasts; Z80.3 Family history of malignant neoplasm of breast
CPT/HCPCS: 77063; 77067

== ENCOUNTER → 2025-09-16 08:42 | Outpatient (CLI) | payer OTHER, SELFPAY ==
--- NOTE | 2025-09-16 08:43 | DI.MG.S_ITS ---
US breast RT limited, MM diagnostic mammo unilat RT: 09/16/2025 BI-RADS: 4 CLINICAL: 70-year old female for right diagnostic mammogram and right diagnostic breast ultrasound that is a recall from screening on 08/28/2025. Tyrer-Cuzick lifetime risk of 11.1%. Current reported family history of breast cancer: mother. The patient had a prior right breast biopsy. PRIOR EXAMS 08/28/2025, 08/22/2024, 12/11/2022, 12/08/2021. MAMMOGRAPHY TECHNIQUE: 2D and 3D (tomosynthesis) digital mammographic views obtained, with additional images as needed for full coverage. Current study was also evaluated with a Computer Aided Detection (CAD) system. ULTRASOUND TECHNIQUE: Right targeted breast ultrasound of the area of clinical interest and the axilla was performed with image documentation. Real-time gordon scale and color doppler imaging of the area of clinical interest was performed with image documentation. DENSITY Right: D. The breast is extremely dense, which lowers the sensitivity of mammography. MAMMOGRAPHY FINDINGS Right (finding-1): Upper Inner Quadrant, Posterior depth, measuring 0.7cm: Correlating with findings on screening mammogram, there is a focal asymmetry present with associated architectural distortion. ULTRASOUND FINDINGS Right (finding-1): Upper Inner at 1:00, 10 cm from nipple, measuring 0.6 x 0.3 x 0.7 cm: Correlating with findings on mammogram there is an irregularly shaped, spiculated, hypoechoic mass showing posterior acoustic shadowing. Doppler shows no vascularity. Right: Axilla: No abnormal lymph nodes are seen in the axilla. IMPRESSION: Right (Mass): Upper Inner at 1:00, 10 cm from nipple, measuring 0.6 x 0.3 x 0.7 cm * Suspicious findings with likelihood of malignancy. RECOMMENDATIONS Right: Upper Inner at 1:00, 10 cm from nipple * Ultrasound-guided biopsy for further evaluation. COMMENTS: Findings and recommendations were conveyed to the patient during today's evaluation by Dr. Bronson. OVERALL ASSESSMENT CATEGORY BI-RADS-4: Suspicious. ELECTRONICALLY SIGNED: Vira Huang M.D. on 09/16/2025 at 10:09:32 AM PT Interpreting Station ID: [id number]
== END ==
LOC: MAMMO 08:43
PROVIDERS: PCP Family Medicine; Referring Provider Family Medicine; Visit Provider Family Medicine
DX: R92.8 Other abnormal and inconclusive findings on diagnostic imaging of breast (principal); N63.12 Unspecified lump in the right breast, upper inner quadrant; R92.341 Mammographic extreme density, right breast; Z80.3 Family history of malignant neoplasm of breast
CPT/HCPCS: 76642; 77065; G0279

== ENCOUNTER → 2025-09-25 11:35 | Outpatient (CLI) | payer OTHER, SELFPAY ==
[2025-09-25 12:56] LABS: Cholesterol 224 mg/dL (140-199); HDL Cholesterol 85 mg/dL (40-60); Triglycerides 244 mg/dL (35-150)
== END ==
PROVIDERS: PCP Family Medicine; Referring Provider Family Medicine; Visit Provider Family Medicine
DX: E78.5 Hyperlipidemia, unspecified (principal)
CPT/HCPCS: 36415; 80061

== ENCOUNTER → 2025-10-02 11:58 | Outpatient (CLI) | payer OTHER, SELFPAY ==
--- NOTE | 2025-10-02 | PATH_ITS ---
[facility] Accession Number: [id number] No. of containers..01 Tissue . 01 Material submitted: . breast - RIGHT BREAST MASS 1:00 10CMFN . 01 Diagnosis: A. RIGHT BREAST MASS, 1 O'CLOCK, 10 CM FROM NIPPLE: Invasive carcinoma of the breast. Please see case summary. . CASE SUMMARY: Specimen Procedure: Needle biopsy. Specimen laterality: Right. . Tumor Histologic type: Invasive lobular carcinoma. Histologic grade: Glandular / tubular differentiation, score 3/3. Nuclear pleomorphism: Score 1/3. Mitotic rate: Score 1/3. Overall grade Grade 1 / 3 (low grade; score 5/9). . Carcinoma in situ: Patchy regions suspicious for atypical lobular hyperplasia / lobular carcinoma in-situ are present. . Lymphatic and/or vascular invasion: Not identified. . Additional findings: Predictive marker immunohistochemical studies are performed on block A1 with the invasive carcinoma showing the following results: . Estrogen receptor (SP1): Positive (91-100%, strong intensity). Progesterone receptor (1E2): Positive (31-40%, intermediate intensity). Her2 (4B5): Negative (1+). Ki-67 (MIB1): Low (less than 5%). . Internal controls for ER and TX are positive. Formalin fixation time exceeds 72 hours. The scoring criteria for breast biomarkers by immunohistochemistry is based on the ASCO/CAP guidelines (Altagracia AC et al, J Clin Oncol: 2017Apr 16;36(20):6968-1785 and Naye AGUILAR et al, Arch Pathol Lab Med: 2009;134(6):907-22). Deparaffinized sections of formalin fixed tissue (along with appropriate positive controls) are incubated with the above antibody(s). Using the automated Davie stainer, tissue is incubated with the designated antibody which is then localized by a non-biotin, dual polymer detection system. The external controls are reviewed for appropriate reactivity and found to be adequate. Results on the target cell population are indicated above. These tests have not been validated on decalcified tissue. MRV 10/12/2025 1142 Local . 01 Comment: This case is also reviewed by Dr. Luis A Blackwell (Julie), who agrees with the interpretation. . Dr. Zoraida Price called to discussed results with Dr. Kumar's care team, however, no one was available per daniela Tatumr. Dr. Price left her call back office number with daniela Newmanr, on 10/09/2025 at approximately 3:00 p.m. . 01 Electronically signed: . Zoraida Price MD, Pathologist NPI- [id number] . 01 Gross description: . Received in formalin with two patient identifiers and right breast mass 1 o'clock 10 cm FN per requisition, is a 1.5 x 1.0 x 0.3 cm aggregate of extensively disrupted fibrofatty tissue fragments. The specimen is entirely submitted in cassette A1. . The specimen was collected at 1 p.m. on 10/02/2025 for a total formalin fixation time exceeding 72 hours. ([id number]) /HUBERT 10/12/2025 1142 Local . 01 Microscopic: . An immunohistochemistry panel is performed to further evaluate the cells of interest. The control stains show appropriate reactivity. . RESULTS: DEAN-3: Positive, consistent with carcinoma of breast origin. E-cadherin: Negative, consistent with lobular differentiation. . . * This test was developed and the performance characteristics were validated by [facility]. It has not been cleared or approved by the U.S. Food and Drug Administration. . 01 Pathologist provided ICD-10: C50.911 . 01 CPT . 886131, N39651, [id number], [id number] Performed at: [address] [id number] MD Kostas Fam MD Phone: [phone]
--- NOTE | 2025-10-02 12:14 | DI.US.S_ITS ---
US bx breast perc w vac device: 10/02/2025. Rad-Path Correlation: Pending CLINICAL: 70-year old female for right procedure that resulted from diagnostic mammogram on 09/16/2025. Tyrer-Cuzick lifetime risk of 14.0%. Current reported family history of breast cancer: mother. The patient had a prior right breast biopsy. PRIOR EXAMS Mammogram(s): 09/16/2025, 08/28/2025. Breast Ultrasound(s): 09/16/2025. 11 Other Exams on 08/22/2024, 12/11/2022, 12/08/2021, 05/31/2021, 02/08/2021, 01/27/2021, 01/19/2021, 01/10/2019, 12/13/2017. CONSENT Risks including but not limited to bleeding and infection, benefits and alternatives were discussed with the patient. The patients agreed to the procedure, reported no allergy to local anesthesia and signed the consent form. ROUTINE Right: Patient positioned in the supine or supine-oblique position, prepped and draped in the usual manner using sterile technique. TECHNIQUE Right: Upper Inner at 1:00, 10 cm from nipple: Procedure: Ultrasound-guided vacuum-assisted biopsy of a mass with Tumark(R) Vision marker placement. Device: 14-gauge vacuum-assisted biopsy instrument. BD EleVation(TM). Approach: Inferior/Lateral. Anesthesia: Local anesthesia obtained using 2 ml 2%-lidocaine. Secondary local anesthesia obtained using 6 ml 1%-lidocaine with epinephrine. Skin Entry: Incision with #11 blade. Passes: 2. Specimens: 4. Targeting Confirmation: Post-Procedure Imaging. Marker Placement: Tumark(R) Vision marker placed in target location. Rad/Path Correlation: Pending receipt of pathology report. Conclusion: Ultrasound-guided Vacuum-assisted biopsy with marker placement, Right: Upper Inner at 1:00, 10 cm from nipple COMPLICATIONS: No complications were encountered while the patient was in our department. DISPOSITION The patient left our department in good condition with aftercare instructions and urged to contact us should any problem arise. SUMMARY Right: Upper Inner at 1:00, 10 cm from nipple: Ultrasound-guided vacuum- assisted biopsy of a mass with Tumark(R) Vision marker placement. PATHOLOGY Right: Upper Inner at 1:00, 10 cm from nipple: Radiologist-Pathologist Correlation: Pending receipt of pathology report. ELECTRONICALLY SIGNED: Coby Ortiz M.D. on 10/02/2025 at 03:03:51 PM PT Interpreting Station ID: [id number]
--- NOTE | 2025-10-02 12:15 | DI.MG.S_ITS ---
MM clip placement RT: 10/02/2025. BI-RADS: None CLINICAL: 70-year old female for right diagnostic mammogram that is a recall from screening on 08/28/2025. Tyrer-Cuzick lifetime risk of 14.0%. Current reported family history of breast cancer: mother. The patient had a prior right breast biopsy. PRIOR EXAMS Mammogram(s): 09/16/2025, 08/28/2025 08/22/2024, 12/11/2022, MAMMOGRAPHY TECHNIQUE: 2D and/or 3D (tomosynthesis) digital mammographic views obtained, with additional images as needed for full coverage. DENSITY Right: D. The breast is extremely dense, which lowers the sensitivity of mammography. MAMMOGRAPHY FINDINGS Right: Upper Inner at 1:00, 10 cm from nipple: There is a (Tumark(R) Vision) biopsy marker in targeted location. IMPRESSION: Right * Biopsy marker present. OVERALL ASSESSMENT CATEGORY BI-RADS None: This exam requires no BI-RADS. ELECTRONICALLY SIGNED: Coby Ortiz M.D. on 10/02/2025 at 03:04:35 PM PT Interpreting Station ID: [id number]
== END ==
PROVIDERS: PCP Family Medicine; Referring Provider Family Medicine; Visit Provider Family Medicine
DX: C50.211 Malignant neoplasm of upper-inner quadrant of right female breast (principal); R92.341 Mammographic extreme density, right breast; Z17.0 Estrogen receptor positive status [ER+]; Z17.21 Progesterone receptor positive status
CPT/HCPCS: 19083; 77065